=== PATIENT | male | born 1995 | race Caucasian/White ===

== ENCOUNTER 2019-09-01 21:35 | Emergency (ER) | payer OTHER ==
[~2019-09-01] VITALS: Ht 180.3 cm; Wt 68.0 kg
== END 2019-09-01 22:23 | disposition home or self-care (01) ==
LOC: ER 21:35
DX: K14.6 Glossodynia (principal)

== ENCOUNTER 2020-05-11 08:38 | Emergency (ER) | payer OTHER ==
[~2020-05-11] VITALS: Ht 182.9 cm; Wt 67.1 kg
== END 2020-05-11 10:39 | disposition home or self-care (01) ==
LOC: ER 08:38
DX: J35.01 Chronic tonsillitis (principal); K29.70 Gastritis, unspecified, without bleeding

== ENCOUNTER 2024-05-29 12:09 | Emergency (ER) | payer OTHER ==
[~2024-05-29] VITALS: Ht 182.9 cm; Wt 69.9 kg
[2024-05-29] MEDS ORDERED: IBU600 MG PO (19:55)
== END 2024-05-29 20:09 | disposition home or self-care (01) ==
LOC: ER 12:12
DX: S93.401A Sprain of unspecified ligament of right ankle, initial encounter (principal); X58.XXXA Exposure to other specified factors, initial encounter; Y93.61 Activity, american tackle football; Y92.89 Other specified places as the place of occurrence of the external cause; Y99.9 Unspecified external cause status